=== PATIENT | female | born 1985 | race Caucasian/White ===

== ENCOUNTER 2022-04-06 02:27 | Inpatient (IN) | payer MEDICAID ==
[~2022-04-06] VITALS: Ht 170.2 cm; Wt 88.5 kg
[2022-04-06] MEDS ORDERED: MORPHINE SULFATE 5 MG/ML VIAL IVP PRN (03:15)
[2022-04-06] MEDS ORDERED: CARBOPROST 250 MCG/ML AMP IM PRN (03:15)
[2022-04-06] MEDS ORDERED: OXYTOCIN 20 UNITS in LACTATED RINGERS 1,000 ML IV SCH (03:15)
[2022-04-06] MEDS ORDERED: METHYLERGONOVINE 0.2 MG/ML AMP IM PRN (03:15)
[2022-04-06] MEDS ORDERED: ONDANSETRON 4 MG/2 ML VIAL IVP PRN (03:15)
[2022-04-06] MEDS ORDERED: LACTATED RINGERS 500 ML IV SCH (03:15)
[2022-04-06] MEDS ORDERED: LACTATED RINGERS 1,000 ML IV SCH (03:15)
[2022-04-06] MEDS ORDERED: MORPHINE SULFATE 10 MG/ML VIAL ONE (03:21)
[2022-04-06] MEDS ORDERED: ONDANSETRON 4 MG/2 ML VIAL ONE (03:21)
[2022-04-06 03:27] VITALS: BP 114/64
[2022-04-06 03:38] LABS: BASOPHILS % (AUTO) 0.5 % (0.0-2.0); EOSINOPHILS % (AUTO) 0.3 % (0.0-4.0); HEMATOCRIT 40.1 % (36-48); HEMOGLOBIN 13.6 g/dL (12.0-16.0); LYMPHOCYTES # (AUTO) 2.4 K/uL (2.5-16.5); LYMPHOCYTES % (AUTO) 25.6 % (20.5-51.1); MEAN CORPUSCULAR HEMOGLOBIN 32 pg (27-31); MEAN CORPUSCULAR HGB CONC 34 g/dL (33-37); MEAN CORPUSCULAR VOLUME 94.6 fL (80-94); MONOCYTES % (AUTO) 10.5 % (1.7-9.3); NEUTROPHILS % (AUTO) 63.1 % (42.2-75.2); PLATELET COUNT (AUTO) 234 K/uL (140-450); RED BLOOD CELL COUNT(AUTO) 4.24 MIL/uL (4.20-5.40); RED CELL DISTRIBUTION WIDTH 13.4 % (11.6-13.7); WHITE BLOOD COUNT (AUTO) 9.5 K/uL (4.8-10.8)
[2022-04-06 03:38] LABS: APPEARANCE,URINE CLEAR (CLEAR); BILIRUBIN,URINE NEGATIVE (NEGATIVE); BLOOD, URINE LARGE (NEGATIVE); COLOR,URINE YELLOW (YELLOW); LEUKOCYTE ESTERASE ,URINE NEGATIVE (NEGATIVE); NITRITE, URINE NEGATIVE (NEGATIVE); UGLUCOSE NEGATIVE (NEGATIVE)
[2022-04-06] MEDS ORDERED: OXYTOCIN 20 UNITS/LR PREMIX 1,000 ML IV ONE (03:49)
[2022-04-06 03:58] LABS: PROTHROMBIN TIME 9.8 secs (10.8-13.4)
[2022-04-06 04:06] LABS: ALBUMIN 3.1 g/dL (3.4-5.0); ANION GAP 18.8 (8-16); CARBON DIOXIDE 19.7 mmol/L (21-32); CREATININE 0.6 mg/dL (0.6-1.3); POTASSIUM 3.5 mmol/L (3.5-5.1); TOTAL BILIRUBIN 0.3 mg/dL (0.0-1.0)
[2022-04-06] MEDS ORDERED: PNV1TABL5 PO (05:14)
[2022-04-06] MEDS ORDERED: BENZOCAINE/MENTHOL 20%-0.5% 60 GM CAN TP PRN (09:20)
[2022-04-06] MEDS ORDERED: MEASLES, MUMPS, AND RUBELLA 1 VIAL SQVAC ONE (09:20)
[2022-04-06] MEDS ORDERED: IBUPROFEN 800 MG TAB PO PRN (09:20)
--- NOTE | 2022-04-06 09:37 | NUR ---
PATIENT HAS BEEN SCREENED AND CATEGORIZED LOW NUTRITION RISK. PATIENT WILL BE SEEN WITHIN 7 DAYS OF ADMISSION. 04/13/22 REVIEWED BY JOSE MANDUJ[address]O RD
[2022-04-07 05:46] LABS: HEMATOCRIT 37.1 % (36-48); HEMOGLOBIN 12.6 g/dL (12.0-16.0)
== END 2022-04-07 18:02 | disposition home or self-care (01) | DRG 560 ==
LOC: MLD 02:27 → MFCC 08:30
PROVIDERS: ADMIT Obstetrics & Gynecology; ATTEND Obstetrics & Gynecology
PROC: 10E0XZZ Delivery of Products of Conception, External Approach (ICD-10-PCS; principal; 2022-04-06)
DX: O48.0 Post-term pregnancy (principal); Z37.0 Single live birth; Z20.822 Contact with and (suspected) exposure to COVID-19; Z3A.41 41 weeks gestation of pregnancy
CPT/HCPCS: 36415; 59409; 80053; 81003; 85018; 85025; 85610; 85730; 86592; 86886; 86900; 86901; J2270; J2405; J2590